=== PATIENT | male | born 1960 | race Caucasian/White ===

== ENCOUNTER 2018-07-18 09:03 | Emergency (ER) | payer MEDICAID ==
[~2018-07-18] VITALS: Ht 190.5 cm; Wt 81.8 kg
[2018-07-18] MEDS ORDERED: NAPR-56 PO (09:28)
[2018-07-18] MEDS ORDERED: PENI250T2 PO (09:28)
[2018-07-18] MEDS ORDERED: HYDROcodone/acetaminophen 5mg/325mg tablet PO ONE (09:30)
[2018-07-18 09:33] VITALS: BP 151/11
== END 2018-07-18 09:50 | disposition home or self-care (01) ==
LOC: ER 09:03
DX: K08.89 Other specified disorders of teeth and supporting structures (principal); R22.0 Localized swelling, mass and lump, head; F17.200 Nicotine dependence, unspecified, uncomplicated; Z79.899 Other long term (current) drug therapy
CPT/HCPCS: 99283

== ENCOUNTER 2018-12-30 09:24 | Emergency (ER) | payer MEDICAID ==
[~2018-12-30] VITALS: Ht 190.5 cm; Wt 80.5 kg
[2018-12-30 09:33] VITALS: BP 123/93
[2018-12-30] MEDS ORDERED: HYDR-4353 PO (10:06)
[2018-12-30] MEDS ORDERED: oxyCODONE/APAP 10/325mg tablet PO ONE (10:10)
== END 2018-12-30 10:23 | disposition home or self-care (01) ==
LOC: ER 09:24
DX: S00.532A Contusion of oral cavity, initial encounter (principal); Z79.899 Other long term (current) drug therapy; Y04.8XXA Assault by other bodily force, initial encounter; Y93.89 Activity, other specified; Y92.89 Other specified places as the place of occurrence of the external cause; Y99.8 Other external cause status
CPT/HCPCS: 99283

== ENCOUNTER 2023-04-12 14:30 | Emergency (ER) | payer MEDICAID ==
[~2023-04-12] VITALS: Ht 190.5 cm; Wt 83.2 kg
[2023-04-12 15:05] VITALS: BP 127/84; PULSE 85; TEMP 99.1; O2SAT 96
[2023-04-12] MEDS ORDERED: ketorolac tromethamine 15mg/ml inj. IM ONE (18:20)
[2023-04-12] MEDS ORDERED: ketorolac trometh. 30mg/ml inj. IM ONE (18:25)
[2023-04-12 18:27] VITALS: RESP 16
[2023-04-12] MEDS ORDERED: NAPR-56 PO (18:27)
== END 2023-04-12 18:42 | disposition home or self-care (01) ==
LOC: ER 14:31
DX: S93.492A Sprain of other ligament of left ankle, initial encounter (principal); X58.XXXA Exposure to other specified factors, initial encounter; Y93.89 Activity, other specified; Y92.89 Other specified places as the place of occurrence of the external cause; Y99.9 Unspecified external cause status
CPT/HCPCS: 73610; 96372; 99283; J1885

== ENCOUNTER 2024-06-11 09:09 | Inpatient (IN) | payer MEDICAID, OTHER ==
[~2024-06-11] VITALS: Ht 190.5 cm; Wt 78.2 kg
[2024-06-11 09:51] LABS: BASOPHILS # (AUTO) 0.1 X10'3 (0-0.2); BASOPHILS % (AUTO) 0.8 % (0-1); EOSINOPHILS % (AUTO) 0.2 % (0-6); HEMATOCRIT 42.1 % (42.0-52.0); HEMOGLOBIN 14.4 g/dl (14.0-17.9); LYMPHOCYTES % (AUTO) 10.1 % (21-51); MEAN CORPUSCULAR HEMOGLOBIN 34.5 PG (27.0-31.0); MEAN CORPUSCULAR HGB CONC 34.3 g/dL (33.0-36.5); MEAN CORPUSCULAR VOLUME 100.5 FL (78-98); MEAN PLATELET VOLUME 7.6 FL (7.4-10.4); MONOCYTES # (AUTO) 0.4 X10'3 (0-0.9); MONOCYTES % (AUTO) 4.3 % (2-12); NEUTROPHILS # (AUTO) 8.3 X10'3 (1.8-7.7); NEUTROPHILS % (AUTO) 84.6 % (42-75); PLATELET COUNT 416 X10'3 (140-440); RED BLOOD COUNT 4.18 X10'6 (4.70-6.10); RED CELL DISTRIBUTION WIDTH 13.3 % (11.5-14.5); WHITE BLOOD COUNT 9.8 X10'3 (4.5-11.0)
[2024-06-11 10:18] LABS: ALANINE AMINOTRANSFERASE 19 U/L (12-78); ALBUMIN 2.3 G/DL (3.4-5.0); ALBUMIN/GLOBULIN RATIO 0.4 (1.1-1.5); ALKALINE PHOSPHATASE 96 IU/L (46-116); ANION GAP 7 (8-16); ASPARTATE AMINO TRANSFERASE 23 U/L (10-37); BILIRUBIN,TOTAL 0.7 MG/DL (0.1-1.0); BLOOD UREA NITROGEN 6 MG/DL (7-18); BUN/CREATININE RATIO 7.4 (10.0-20.0); CALCIUM 9.2 MG/DL (8.5-10.1); CHLORIDE 97 MMOL/L (99-107); CREATININE 0.81 MG/DL (0.60-1.10); GLUCOSE 146 MG/DL (70-104); POTASSIUM 4.1 MMOL/L (3.5-5.1); SODIUM 135 MMOL/L (135-145); TOTAL CARBON DIOXIDE 30.7 MMOL/L (24-32); TOTAL PROTEIN 7.6 G/DL (6.4-8.2); eCRCL 105 ML/MIN; eGFR > 90 ML/MIN
[2024-06-11 10:21] LABS: PRO BRAIN NATRIURETIC PEPTIDE 134 PG/ML (0-125)
[2024-06-11] MEDS: CefTRIAXone 2gm/D5W 50ml BAG 50 ML IV ONE (10:40)
[2024-06-11] MEDS: normal saline 1000ml 1,000 ML IV ONE (10:40)
[2024-06-11] MEDS: benzonatate 100mg capsule PO ONE (10:43)
[2024-06-11] MEDS: azithromycin/NS 500mg/250ml 250 ML IV ONE (10:43)
[2024-06-11] MEDS: HALLS - SOOTHE MENTHOL 1.8 MG cough drop LOZENGE MM PRN (10:48)
[2024-06-11] MEDS: acetaminophen 325mg tablet PO ONE (10:48)
[2024-06-11] MEDS ORDERED: bisacodyl 10mg suppository rectal RC PRN (11:25)
[2024-06-11] MEDS ORDERED: mag hydrox/Alum hydrox/simeth 30ml oral suspension PO PRN (11:25)
[2024-06-11] MEDS ORDERED: acetaminophen 325mg tablet PO PRN (11:25)
[2024-06-11] MEDS ORDERED: potassium Cl 40MEQ/1/2NS 520ml 520 ML IV PRN (11:25)
[2024-06-11] MEDS ORDERED: potassium Cl 20 mEq SR tablet PO PRN ×2 (11:25)
[2024-06-11] MEDS ORDERED: magnesium sulf-water 2g/50mL 50 ML IV PRN (11:25)
[2024-06-11] MEDS ORDERED: ondansetron/PF 4mg/2ml inj IV PRN (11:25)
[2024-06-11] MEDS ORDERED: albuterol 2.5 MG/3 ML nebule NEB PRN ×2 (11:25→11:35)
[2024-06-11] MEDS ORDERED: magnesium sulf-water 4G/100mL 100 ML IV PRN (11:25)
[2024-06-11] MEDS ORDERED: ipratropium/albuterol 3ml nebule NEB PRN (11:25)
[2024-06-11] MEDS: normal saline 1000ml 1,000 ML IV SCH (11:35)
[2024-06-11] MEDS: ipratropium/albuterol 3ml nebule NEB SCH (15:53)
[2024-06-11 15:57] VITALS: PULSE 77; PULSE 83; RESP 18; O2SAT 99
[2024-06-11] MEDS: piperacillin/tazo 4.5gm/100ml 100 ML IV SCH (16:32)
[2024-06-11] MEDS: K and/or MAG REPLACEMENT MC SCH (19:42)
[2024-06-11] MEDS: budesonide 0.5mg/2ml UD nebule IH SCH (20:29)
[2024-06-11 20:30] VITALS: PULSE 82; RESP 16; O2SAT 98
[2024-06-11] MEDS: docusate sod 100mg capsule PO SCH (20:33)
[2024-06-11] MEDS: enoxaparin 40mg/0.4ml syringe SQ SCH (20:33)
[2024-06-11] MEDS ORDERED: LORazepam 1 MG tablet PO PRN (20:35)
[2024-06-11] MEDS ORDERED: haloperidol lactate 5mg/ml inj IM PRN (20:35)
[2024-06-11] MEDS ORDERED: haloperidol 5mg tablet PO PRN (20:35)
[2024-06-11] MEDS ORDERED: LORazepam 2 mg/ml vial IV PRN (20:35)
[2024-06-11 20:40] VITALS: PULSE 101; RESP 16
[2024-06-11 23:34] VITALS: PULSE 91; RESP 16; O2SAT 93
[2024-06-11 23:39] VITALS: PULSE 93; RESP 16
[2024-06-12] VITALS (19 sets, daily range): BP systolic 104–134; BP diastolic 68–87; PULSE 74–98; RESP 12–24; TEMP 97.8–100.1; O2SAT 94–100
[2024-06-12 05:54] LABS: BASOPHILS # (AUTO) 0.1 X10'3 (0-0.2); BASOPHILS % (AUTO) 0.6 % (0-1); EOSINOPHILS % (AUTO) 0.2 % (0-6); HEMATOCRIT 35.5 % (42.0-52.0); HEMOGLOBIN 12.1 g/dl (14.0-17.9); LYMPHOCYTES # (AUTO) 0.9 X10'3 (1.1-4.8); LYMPHOCYTES % (AUTO) 8.2 % (21-51); MEAN CORPUSCULAR HEMOGLOBIN 34.4 PG (27.0-31.0); MEAN PLATELET VOLUME 7.8 FL (7.4-10.4); MONOCYTES # (AUTO) 0.6 X10'3 (0-0.9); NEUTROPHILS # (AUTO) 8.8 X10'3 (1.8-7.7); PLATELET COUNT 357 X10'3 (140-440); RED BLOOD COUNT 3.52 X10'6 (4.70-6.10); RED CELL DISTRIBUTION WIDTH 13.4 % (11.5-14.5); WHITE BLOOD COUNT 10.4 X10'3 (4.5-11.0)
[2024-06-12 06:17] LABS: ALANINE AMINOTRANSFERASE 19 U/L (12-78); ALBUMIN 1.8 G/DL (3.4-5.0); ALBUMIN/GLOBULIN RATIO 0.4 (1.1-1.5); ALKALINE PHOSPHATASE 80 IU/L (46-116); ANION GAP 7 (8-16); ASPARTATE AMINO TRANSFERASE 17 U/L (10-37); BILIRUBIN,TOTAL 0.4 MG/DL (0.1-1.0); BLOOD UREA NITROGEN 8 MG/DL (7-18); BUN/CREATININE RATIO 10.3 (10.0-20.0); CALCIUM 8.5 MG/DL (8.5-10.1); CHLORIDE 102 MMOL/L (99-107); CREATININE 0.78 MG/DL (0.60-1.10); GLUCOSE 113 MG/DL (70-104); LIPASE 45 U/L (16-77); MAGNESIUM 2.1 MG/DL (1.5-2.4); PHOSPHORUS 3.7 MG/DL (2.3-4.5); POTASSIUM 3.8 MMOL/L (3.5-5.1); SODIUM 135 MMOL/L (135-145); TOTAL CARBON DIOXIDE 26.4 MMOL/L (24-32); TOTAL PROTEIN 6.2 G/DL (6.4-8.2); eCRCL 109 ML/MIN; eGFR > 90 ML/MIN
[2024-06-12 06:47] LABS: INR 1.1 INR; PROTHROMBIN TIME 11.1 SECONDS (9.0-12.0)
[2024-06-12] MEDS: thiamine 100mg tablet PO SCH (07:54)
[2024-06-12] MEDS: multivitamins, therapeutics tablet PO SCH (07:54)
[2024-06-12] MEDS: HYDROmorphone inj. 0.5 MG/0.5 ML DISP.SYRIN IV PRN (10:20)
[2024-06-12] MEDS: benzonatate 100mg capsule PO PRN (12:44)
[2024-06-13] VITALS (10 sets, daily range): BP systolic 111–124; BP diastolic 77–84; PULSE 60–91; RESP 16–20; TEMP 98.1–98.6; O2SAT 94–96
[2024-06-13 05:02] LABS: BASOPHILS # (AUTO) 0.1 X10'3 (0-0.2); BASOPHILS % (AUTO) 0.7 % (0-1); EOSINOPHILS # (AUTO) 0.1 X10'3 (0-0.9); EOSINOPHILS % (AUTO) 0.6 % (0-6); HEMATOCRIT 34.2 % (42.0-52.0); HEMOGLOBIN 11.9 g/dl (14.0-17.9); LYMPHOCYTES # (AUTO) 0.9 X10'3 (1.1-4.8); LYMPHOCYTES % (AUTO) 9.5 % (21-51); MEAN CORPUSCULAR HEMOGLOBIN 35.1 PG (27.0-31.0); MEAN CORPUSCULAR HGB CONC 34.9 g/dL (33.0-36.5); MEAN CORPUSCULAR VOLUME 100.4 FL (78-98); MEAN PLATELET VOLUME 7.7 FL (7.4-10.4); MONOCYTES # (AUTO) 0.6 X10'3 (0-0.9); MONOCYTES % (AUTO) 6.5 % (2-12); NEUTROPHILS # (AUTO) 7.7 X10'3 (1.8-7.7); NEUTROPHILS % (AUTO) 82.7 % (42-75); PLATELET COUNT 384 X10'3 (140-440); RED CELL DISTRIBUTION WIDTH 13.4 % (11.5-14.5); WHITE BLOOD COUNT 9.3 X10'3 (4.5-11.0)
[2024-06-13 05:14] LABS: INR 1.1 INR; PROTHROMBIN TIME 11.3 SECONDS (9.0-12.0)
[2024-06-13 05:23] LABS: ALANINE AMINOTRANSFERASE 26 U/L (12-78); ALBUMIN 1.9 G/DL (3.4-5.0); ALBUMIN/GLOBULIN RATIO 0.4 (1.1-1.5); ALKALINE PHOSPHATASE 72 IU/L (46-116); ANION GAP 4 (8-16); ASPARTATE AMINO TRANSFERASE 33 U/L (10-37); BILIRUBIN,TOTAL 0.4 MG/DL (0.1-1.0); BLOOD UREA NITROGEN 6 MG/DL (7-18); BUN/CREATININE RATIO 7.8 (10.0-20.0); CALCIUM 8.5 MG/DL (8.5-10.1); CHLORIDE 100 MMOL/L (99-107); CREATININE 0.77 MG/DL (0.60-1.10); GLUCOSE 124 MG/DL (70-104); LIPASE 39 U/L (16-77); MAGNESIUM 1.8 MG/DL (1.5-2.4); PHOSPHORUS 4.2 MG/DL (2.3-4.5); POTASSIUM 3.7 MMOL/L (3.5-5.1); SODIUM 133 MMOL/L (135-145); TOTAL CARBON DIOXIDE 29.2 MMOL/L (24-32); TOTAL PROTEIN 6.3 G/DL (6.4-8.2); eCRCL 110 ML/MIN; eGFR > 90 ML/MIN
[2024-06-13] MEDS: HYDROmorphone/PF 0.2 MG/ML SYRINGE IV PRN (08:35)
[2024-06-13] MEDS: ibuprofen 200mg tablet PO PRN (10:19)
[2024-06-13] MEDS ORDERED: ALBU8HFA INH (12:58)
[2024-06-13] MEDS ORDERED: HYDR-3973 PO (12:58)
[2024-06-13] MEDS ORDERED: LEVO750T68 PO (12:58)
[2024-06-13] MEDS ORDERED: BUDE180A INH (12:58)
[2024-06-13] MEDS ORDERED: BENZ200C53 PO (12:58)
[2024-06-13] MEDS: FLU VACC TS2024-25(6MOS UP)/PF 45 MCG/0.5 ML SYRINGE IMVAC ONE (13:08)
[2024-06-16] MEDS ORDERED: folic acid 1mg tablet PO SCH (08:00)
== END 2024-06-13 14:45 | disposition home or self-care (01) | DRG 190 ==
LOC: ER 09:10 → ED HOLD 11:32 → EDBEDREQ 21:12 → SUR 3N 06-12 00:55
PROVIDERS: ADMIT Family Medicine; ATTEND Family Medicine
DX: J44.0 Chronic obstructive pulmonary disease with (acute) lower respiratory infection (principal); J18.9 Pneumonia, unspecified organism; F17.210 Nicotine dependence, cigarettes, uncomplicated; R59.0 Localized enlarged lymph nodes; F10.90 Alcohol use, unspecified, uncomplicated; Z20.822 Contact with and (suspected) exposure to COVID-19; F12.90 Cannabis use, unspecified, uncomplicated; J43.9 Emphysema, unspecified; R63.4 Abnormal weight loss; Y90.9 Presence of alcohol in blood, level not specified; Z68.21 Body mass index [BMI] 21.0-21.9, adult; Z80.8 Family history of malignant neoplasm of other organs or systems; Z82.49 Family history of ischemic heart disease and other diseases of the circulatory system
CPT/HCPCS: 36415; 71045; 71250; 80053; 83605; 83690; 83735; 83880; 84100; 84145; 84484; 85025; 85610; 87040; 87081; 87502; 87503; 87811; 90686; 93005; 94640; 94760; 99285; G0378; J0456; J0696; J1171; J1650; J2543; J7030

== ENCOUNTER 2024-07-16 14:09 | Emergency (ER) | payer OTHER ==
[~2024-07-16] VITALS: Ht 188 cm; Wt 82.7 kg
[~2024-07-16 14:09] MED LIST: ALBU8HFA INH; BENZ200C53 PO; BUDE180A5 INH; HYDR-3973 PO; LEVO750T68 PO
[2024-07-16 14:50] LABS: BASOPHILS % (AUTO) 0.9 % (0-1); EOSINOPHILS % (AUTO) 0.7 % (0-6); HEMOGLOBIN 14.1 g/dl (14.0-17.9); LYMPHOCYTES # (AUTO) 0.9 X10'3 (1.1-4.8); LYMPHOCYTES % (AUTO) 19.9 % (21-51); MEAN CORPUSCULAR HEMOGLOBIN 34.2 PG (27.0-31.0); MEAN CORPUSCULAR HGB CONC 34.3 g/dL (33.0-36.5); MEAN CORPUSCULAR VOLUME 99.6 FL (78-98); MEAN PLATELET VOLUME 7.1 FL (7.4-10.4); MONOCYTES # (AUTO) 0.5 X10'3 (0-0.9); MONOCYTES % (AUTO) 11.5 % (2-12); NEUTROPHILS # (AUTO) 2.9 X10'3 (1.8-7.7); PLATELET COUNT 166 X10'3 (140-440); RED BLOOD COUNT 4.11 X10'6 (4.70-6.10); RED CELL DISTRIBUTION WIDTH 15.1 % (11.5-14.5); WHITE BLOOD COUNT 4.3 X10'3 (4.5-11.0)
[2024-07-16 15:12] LABS: ALBUMIN 3.5 G/DL (3.4-5.0); ANION GAP 11 (8-16); BLOOD UREA NITROGEN 6 MG/DL (7-18); CALCIUM 8.1 MG/DL (8.5-10.1); CHLORIDE 102 MMOL/L (99-107); CREATININE 0.75 MG/DL (0.60-1.10); GLUCOSE 76 MG/DL (70-104); POTASSIUM 4.2 MMOL/L (3.5-5.1); PRO BRAIN NATRIURETIC PEPTIDE 96 PG/ML (0-125); SODIUM 138 MMOL/L (135-145); TOTAL CARBON DIOXIDE 24.9 MMOL/L (24-32); eCRCL 119 ML/MIN; eGFR > 90 ML/MIN
[2024-07-16 16:16] VITALS: BP 114/88; PULSE 77; RESP 16; TEMP 98.5; O2SAT 95
[2024-07-17] MEDS ORDERED: ALBU8HFA INH (07:18)
[2024-07-17] MEDS ORDERED: AZIT-31 PO (07:18)
== END 2024-07-16 18:47 | disposition left against medical advice (07) ==
LOC: ER 14:10
DX: R06.02 Shortness of breath (principal); R05.9 Cough, unspecified; Z53.21 Procedure and treatment not carried out due to patient leaving prior to being seen by health care provider
CPT/HCPCS: 36415; 71046; 80048; 83605; 83880; 85025; 87040

== ENCOUNTER 2024-07-17 05:47 | Emergency (ER) | payer OTHER ==
[~2024-07-17] VITALS: Ht 190.5 cm; Wt 84.1 kg
[2024-07-17] MEDS ORDERED: ALBU8HFA INH (07:18)
[2024-07-17] MEDS ORDERED: AZIT-31 PO (07:18)
[2024-07-17] MEDS: azithromycin 250mg tablet PO ONE (07:25)
[2024-07-17] MEDS: dexamethasone 4mg tablet PO ONE (07:25)
[2024-07-17] MEDS: ipratropium/albuterol 3ml nebule NEB ONE (07:37)
[2024-07-17 07:38] VITALS: PULSE 71; PULSE 75; RESP 18; O2SAT 95; O2SAT 96
[2024-07-17 07:56] VITALS: BP 135/95; PULSE 83; RESP 20; TEMP 97.7; O2SAT 100
== END 2024-07-17 07:58 | disposition home or self-care (01) ==
LOC: ER 05:47
DX: J18.9 Pneumonia, unspecified organism (principal); J44.9 Chronic obstructive pulmonary disease, unspecified; Z79.2 Long term (current) use of antibiotics; Z79.899 Other long term (current) drug therapy; Z87.891 Personal history of nicotine dependence
CPT/HCPCS: 94640; 94760; 99283

== ENCOUNTER 2024-12-30 12:29 | Emergency (ER) | payer MEDICAID, OTHER ==
[~2024-12-30] VITALS: Ht 188 cm; Wt 108.0 kg
[2024-12-30 12:30] VITALS: TEMP 98.5
--- NOTE | 2024-12-30 12:36 | ELECTROCARDIOGRAPH REPORT ---
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 Tez Turcios Measurements Intervals [place] Rate: 89 P: 67 IN: 170 QRS: 71 QRSD: 91 T: 73 QT: 358 QTc: 436 Interpretive Statements Sinus rhythm Consider left atrial enlargement ST elevation, consider inferior injury Baseline wander in lead(s) V2 Electronically Signed On 01-01-2025 21:44:[address] Tez Turcios Please click the below link to view image of tracing.
[2024-12-30 12:42] LABS: BASOPHILS # (AUTO) 0.1 X10'3 (0-0.2); BASOPHILS % (AUTO) 0.8 % (0-1); EOSINOPHILS # (AUTO) 0.1 X10'3 (0-0.9); EOSINOPHILS % (AUTO) 0.8 % (0-6); HEMATOCRIT 44.6 % (42.0-52.0); HEMOGLOBIN 15.5 g/dl (14.0-17.9); LYMPHOCYTES # (AUTO) 1.3 X10'3 (1.1-4.8); LYMPHOCYTES % (AUTO) 19.1 % (21-51); MEAN CORPUSCULAR HEMOGLOBIN 35.2 PG (27.0-31.0); MEAN CORPUSCULAR HGB CONC 34.7 g/dL (33.0-36.5); MEAN CORPUSCULAR VOLUME 101.4 FL (78-98); MEAN PLATELET VOLUME 7.4 FL (7.4-10.4); MONOCYTES # (AUTO) 0.7 X10'3 (0-0.9); MONOCYTES % (AUTO) 10.2 % (2-12); NEUTROPHILS # (AUTO) 4.5 X10'3 (1.8-7.7); NEUTROPHILS % (AUTO) 69.1 % (42-75); PLATELET COUNT 210 X10'3 (140-440); RED CELL DISTRIBUTION WIDTH 13.4 % (11.5-14.5); WHITE BLOOD COUNT 6.6 X10'3 (4.5-11.0)
[2024-12-30] MEDS: ipratropium/albuterol 3ml nebule NEB ONE (12:42)
[2024-12-30 12:45] VITALS: PULSE 103; RESP 20; O2SAT 95
[2024-12-30 12:52] VITALS: PULSE 97; RESP 18; O2SAT 97
--- NOTE | 2024-12-30 12:54 | RADIOLOGY REPORT ---
CHEST RADIOGRAPH Indication: sob Technique: Single frontal view of the chest was obtained COMPARISON: DI CHEST,SINGLE VIEW on DOS: 06/11/24 FINDINGS: Lines and Tubes: None Lungs: Multifocal airspace disease Pleura: No effusion. No pneumothorax. Cardiomediastinal contours: Unremarkable Bones: Unremarkable IMPRESSION: Multifocal airspace disease
[2024-12-30 13:05] LABS: ALANINE AMINOTRANSFERASE 49 U/L (12-78); ALBUMIN 3.4 G/DL (3.4-5.0); ALBUMIN/GLOBULIN RATIO 0.8 (1.1-1.5); ALKALINE PHOSPHATASE 115 IU/L (46-116); ANION GAP 11 (8-16); ASPARTATE AMINO TRANSFERASE 59 U/L (10-37); BILIRUBIN,TOTAL 0.5 MG/DL (0.1-1.0); BLOOD UREA NITROGEN 7 MG/DL (7-18); BUN/CREATININE RATIO 11.7 (10.0-20.0); CALCIUM 8.8 MG/DL (8.5-10.1); CHLORIDE 103 MMOL/L (99-107); GLUCOSE 102 MG/DL (70-104); POTASSIUM 4.3 MMOL/L (3.5-5.1); SODIUM 139 MMOL/L (135-145); TOTAL CARBON DIOXIDE 24.8 MMOL/L (24-32); TOTAL PROTEIN 7.5 G/DL (6.4-8.2); eCRCL 147 ML/MIN; eGFR > 90 ML/MIN
[2024-12-30 13:06] LABS: MAGNESIUM 2.2 MG/DL (1.5-2.4); PRO BRAIN NATRIURETIC PEPTIDE 35 PG/ML (0-125)
[2024-12-30] MEDS: CefTRIAXone 2gm/NS 100ml IVPB 50 ML IV ONE (13:45)
[2024-12-30] MEDS ORDERED: AMOX-580 PO (13:51)
--- NOTE | 2024-12-30 13:52 | Physician Documentation ---
History of Present Illness ~ Chief Complaint: Shortness of Breath Stated Complaint: SOB Time Seen by MD: 12:31 Primary Medical Doctor: NONE Mode of Arrival: EMS HPI This is a 64-year-old gentleman who presents for evaluation of shortness a breath starting this morning. He feels that this was related to the fact that he was exposed to bug spray that was being spread around him. No palliating factors, no aggravating factors, not accompanied by chest pain. He does report that DuoNeb provided by EMS made him feel better. Does have prior history of pneumonia. Does have known left upper lung nodule that is being investigated. Awaiting biopsy. Denies any nausea, vomiting, diarrhea, abdominal pain. Continues to smoke. 50+ pack year history. Medication Reconciliation Allergies: Coded Allergies: No Known Allergies (Unverified , 07/17/24) Scheduled Amox Tr/Potassium Clavulanate 875/125 MG (Augmentin 875/125 MG), 1 TAB PO Q12H Budesonide (Pulmicort Flexhaler), 2 PUFFS INH Q12H Levofloxacin (Levofloxacin), 750 MG PO DAILY Scheduled PRN Benzonatate (Benzonatate), 1 CAP PO TID PRN for cough Hydrocodone Bit/Acetaminophen (Hydrocodone-Apap 10-325 Tablet), 1 TABLET PO Q8H PRN for severe pain (7-10) albuterol inhaler (Pro-Air Inhaler), 2 PUFFS INH Q4H PRN for shortness of breath Past Medical History Past Medical History: No Pertinent History, COPD Past Surgical History: noncontributory Patient History: FH: congestive heart failure brother FH: malignant neoplasm of bone sister Alcohol Use: Occasionally Drug Use: none Lives with: Spouse Lives In: Home Review of Systems ROS 10 point review of systems was performed and unless noted above in HPI is negative for acute process/complaint. Physical Exam Vital Signs: Temperature: 98.5, Source: Oral, Heart Rate: 90, Respiratory Rate: 16, BP: 167/103, Pulse Oximetry: 94, Weight: 108.000 Oxygen Flow Rate: 2.0 Physical Exam GENERAL: Awake, alert, oriented, GCS 15, no apparent distress, non-toxic appearing, answers questions, follows commands appropriately. HEENT: Atraumatic, normocephalic, pupils equal, extraocular muscles intact, sclerae anicteric, mucus membranes moist, oropharynx is clear, no stridor. NECK: supple, full active range of motion, trachea midline, no thyromegaly, no lymphadenopathy, no JVD. CARDIOVASCULAR: regular rate/rhythm, no murmurs/gallops/rubs, Pulses are 2+ in all extremities and symmetric. Capillary refill less than 2 seconds. PULMONARY: Tachypneic, decreased air movement ,no respiratory distress, speaking in full sentences, coarse breath sounds bilaterally, bilateral expiratory wheezing, right lung ronchi, no rales, no accessory muscle use. GASTROINTESTINAL: Soft, non-tender, non-distended, normal active bowel sounds, no organomegaly, no pulsatile masses, no CVA tenderness. NEUROLOGIC: Lucid with normal mental status. Normal facial symmetry. Moves all extremities symmetrically and with purpose. No truncal ataxia. Speech is fluid without evidence of dysarthria or aphasia, no focal deficits appreciated. MUSCULOSKELETAL: There is full range of motion of all extremities. There is no joint pain or joint swelling or joint erythema. There is no muscle pain or tenderness or swelling. EXTREMITIES: warm, well-perfused, no cyanosis, no clubbing, no edema, no acute deformities. Skin: warm, dry, no rashes or lesions, no jaundice, no petechiae orpurpura. No ecchymosis. PSYCHIATRIC: Normal affect, normal insight, normal concentration. Focused exam: [] Progress Results/Orders Results/Orders Orders - MILTON SALDAÑA DO Chest,Single View (12/30/24 12:31) Hs Troponin I W Calculations (12/30/24 14:31) Completed Orders - MILTON SALDAÑA DO Electrocardiogram (12/30/24 12:31) Cbc/Diff (12/30/24 12:31) Chest,Single View (12/30/24 12:31) PBNP (12/30/24 12:31) MG (12/30/24 12:31) CMP (12/30/24 12:31) Hs Troponin I W Calculations (12/30/24 12:31) Ipratropium/Albuterol Nebule (Ipratrop/A (12/30/24 16:00) Azithromycin/Ns 500mg/250ml (Zithromax/N (12/30/24 13:45) Normal Saline 1000ml (Sodium Chloride 10 (12/30/24 13:45) Ceftriaxone 2gm/Ns 100ml Ivpb (Rocephin (12/30/24 13:45) Hydrocodone/Apap 5/325mg Tab (Bassett 5/32 (12/30/24 15:20) Medications Received in ER Medications (Trade) Dose Ordered Sig/Mariel Route PRN Reason Start Time Stop Time Status Last Admin Dose Admin (ipratrop/ albuterol 0.5-3(2.5) MG/3ml nebule) 3 ml Q4H ONCE NEB 12/30/24 16:00 12/30/24 15:29 DC 12/30/24 12:42 3 ML Azithromycin 250 ml @ 250 mls/hr ONCE ONCE IV 12/30/24 13:45 12/30/24 14:44 DC 12/30/24 13:53 250 MLS/HR (sodium chloride 1000ml IV soln) 1,000 ml ONCE ONCE IVB 12/30/24 13:45 12/30/24 13:47 DC 12/30/24 13:53 1,000 ML Ceftriaxone Sodium 50 ml @ 100 mls/hr ONCE ONCE IV 12/30/24 13:45 12/30/24 14:14 DC 12/30/24 13:45 100 MLS/HR (Bassett 5/325mg tablet) 1 tab ONCE ONCE PO 12/30/24 15:20 12/30/24 15:21 DC 12/30/24 15:22 1 TAB Vital Signs 12/30/24 12/30/24 12/30/24 12/30/24 12:30 12:35 12:45 12:52 Temp 98.5 Pulse 95 103 97 Resp 19 19 20 18 B/P (MAP) 134/85 Pulse Ox 96 95 97 O2 Delivery Room Air* Room Air* O2 Flow Rate 0 0 0 FiO2 12/30/24 12/30/24 12/30/24 12/30/24 12:56 12:57 14:39 15:22 Pulse 90 88 Resp 16 16 14 B/P (MAP) 167/103 (124) 117/72 (87) Pulse Ox 94 94 97 O2 Delivery Nasal Cannula* O2 Flow Rate 2.0 2 FiO2 N/A 12/30/24 12/30/24 15:24 15:27 Pulse 85 Resp 14 18 B/P (MAP) 145/85 Pulse Ox 97 Laboratory Tests Test 12/30/24 12:34 White Blood Count 6.6 Red Blood Count 4.40 L Hemoglobin 15.5 Hematocrit 44.6 Mean Corpuscular Volume 101.4 H Mean Corpuscular Hemoglobin 35.2 H Mean Corpuscular Hemoglobin Concent 34.7 Red Cell Distribution Width 13.4 Platelet Count 210 Mean Platelet Volume 7.4 Neutrophils (%) (Auto) 69.1 Lymphocytes (%) (Auto) 19.1 L Monocytes (%) (Auto) 10.2 Eosinophils (%) (Auto) 0.8 Basophils (%) (Auto) 0.8 Neutrophils # (Auto) 4.5 Lymphocytes # (Auto) 1.3 Monocytes # (Auto) 0.7 Eosinophils # (Auto) 0.1 Basophils # (Auto) 0.1 CBC Comment Sodium Level 139 Potassium Level 4.3 Chloride Level 103 Carbon Dioxide Level 24.8 Anion Gap 11 Blood Urea Nitrogen 7 Creatinine 0.60 Estimated GFR/1.73 m2 > 90 BUN/Creatinine Ratio 11.7 Glucose Level 102 Calcium Level 8.8 Magnesium Level 2.2 Total Bilirubin 0.5 Aspartate Amino Transf (AST/SGOT) 59 H Alanine Aminotransferase (ALT/SGPT) 49 Alkaline Phosphatase 115 Troponin I High Sensitivity 8 Pro-B-Type Natriuretic Peptide 35 Total Protein 7.5 Albumin 3.4 Globulin 4.1 Albumin/Globulin Ratio 0.8 L Chemistry Comments Medical Decision Making Findings Facility Status: ED [facility], [facility] process The plan was discussed with the patient, who demonstrates clear understanding of the plan and is in agreement with the plan unless otherwise noted in the chart. All questions have been answered, all concerns were addressed unless otherwise documented. I was available throughout their ED stay for frequent reassessment and questions. Differential Diagnoses (considered and possible or likely): [COVID, influenza, RSV, upper respiratory infection with the top of the viruses, community-acquired pneumonia, neoplasm, less likely ACS CHF] ??Differential Diagnoses (considered and unlikely, not requiring evaluation currently): [Low risk for PE] MDM Data Please see HPI for the following: Independent Historians and external Records Review. Historian: [Patient] Independent Historians: ?[EMS, record review] Medication Management: [Reviewed medication list] Social History and determinants: [Reviewed] Please see the body of the note for the following: Any independent interpretations of ECG, imaging studies. All vitals signs/haemodynamics, ordered tests were independently reviewed and interpreted by myself. Nursing triage complaint and vitals reviewed, additional nursing notes were reviewed as available and I agree unless otherwise noted or documented in contradiction in the chart Vital Signs: Independently reviewed Labs: Independently interpreted Imaging: Independently interpreted Old Medical Records: Independently reviewed, see HPI for relevant summary and information Pulse Oximetry: [94%] interpreted as [normal on room air] by me [Photo Mask Pattern Generator: [Regular Rate, Regular rhythm, no ectopy, NSR] reviewed and interpreted by me] Additionally notably showing: [Hemodynamically he is stable. No evidence of hypoxia. Laboratory workup shows no leukocytosis, normal troponin, normal BNP. Chest x-ray shows multifocal pneumonia.] Tests considered but not ordered include: [Advanced imaging of for PE has been considerably does not appear to be necessary given other diagnosis being more likely, wells of 0] Social Determinants of Health Impact: Patient was evaluated in [facility], [facility] [place] access to healthcare due to below par ratio of patient to medical providers. [] Comorbid Conditions Impacting Present Evaluation and Care/Treatment: [Smoking] Management Discussions with other Healthcare Providers: [None] Treatment and Disposition Medication Management (Given or considered): [Breathing treatment]. Antibiotics and fluids. See EMR for details Consideration for Hospitalization/Escalation/Deescalation of Care: Admission for observation has been considered, [however the patient is able to tolerate p.o., their symptoms are controlled, they are able to rely on oral medications, and their chief complaint/diagnosis can be managed on outpatient basis.] ?ED Course:?[No clinical deterioration, no hypoxia.] ?Shared decision making:?[Patient is hemodynamically stable for discharge home with follow with their primary care provider. [ ] Specific and cautious return precautions provided and discussed with full understanding. Any incidental findings were also discussed and follow up recommendations given. [] All questions answered. Patient/family were able to verbalize back return precautions. Patient/family agree to plan. Copies of imaging and laboratory danny dies were provided.] Code status:?FULL Please see the full Electronic Medical Record for full details of nursing documentation, medications list, other records of complete past medical history and conditions, vital signs, laboratory studies, and any radiologic study interpretations by radiologists. Portions of this note were completed using Madrone dictation software and as a result there may exist minor errors in spelling. I have reviewed elements of past family and social history and agree as included in note. Departure Disposition: HOME / SELF CARE / HOMELESS Impression: Primary Impression: Multifocal pneumonia Additional Impression: Difficulty breathing Discharge Instructions: Community-Acquired Pneumonia, Adult Referrals: NO PRIMARY CARE PROVIDER (PCP) Prescriptions Amox Tr/Potassium Clavulanate 875/125 MG (Augmentin 875/125 MG) 875 Mg-125 Mg Tablet 1 TAB PO Q12H for 10 Days, #20 TAB Prov: MILTON SALDAÑA DO 12/30/24 Education Educated: Patient Educated regarding: diagnosis, treatment, prognosis, need for follow up Signature Scribe Signature: No scribe Attestation: This note accurately reflects clinical decisions, work performed by myself, DO PIPER Erickson NICHOLAS M DO December 30, 2024 13:52
[2024-12-30] MEDS: normal saline 1000ML IV soln IVB ONE (13:53)
[2024-12-30] MEDS: azithromycin/NS 500mg/250ml 250 ML IV ONE (13:53)
[2024-12-30] MEDS: HYDROcodone/acetaminophen 5mg/325mg tablet PO ONE (15:22)
[2024-12-30 15:27] VITALS: BP 145/85; PULSE 85; RESP 18; O2SAT 97
== END 2024-12-30 15:29 | disposition home or self-care (01) ==
LOC: ER 12:29
DX: J18.8 Other pneumonia, unspecified organism (principal); F17.200 Nicotine dependence, unspecified, uncomplicated; Z79.899 Other long term (current) drug therapy
CPT/HCPCS: 36415; 71045; 80053; 83735; 83880; 84484; 85025; 93005; 94640; 96365; 96366; 96368; 99285; J0456; J0696; J7030; 94760

== ENCOUNTER 2025-03-03 10:11 | Emergency (ER) | payer MEDICAID, OTHER ==
[~2025-03-03] VITALS: Ht 190.5 cm; Wt 77.9 kg
--- NOTE | 2025-03-03 10:18 | Physician Documentation ---
History of Present Illness ~ Stated Complaint: BACK/LUNG PAIN Time Seen by MD: 11:01 Primary Medical Doctor: NONE Source: patient, family HPI 64 yom h/o tobacco use disorder presenting with back pain and months of shortness of breath. +cough. He was seen here last fall and diagnosed with pneumonia and spiculated left upper lobe mass. He did not have his insurance set up to follow up until now. no leg swelling or pain Day of Onset: Mar 03, 2025 Medication Reconciliation Allergies: Coded Allergies: No Known Allergies (Unverified , 03/03/25) Scheduled Budesonide (Pulmicort Flexhaler), 2 PUFFS INH Q12H Levofloxacin (Levofloxacin), 750 MG PO DAILY Scheduled PRN Benzonatate (Benzonatate), 1 CAP PO TID PRN for cough Hydrocodone Bit/Acetaminophen (Hydrocodone-Apap 10-325 Tablet), 1 TABLET PO Q8H PRN for severe pain (7-10) albuterol inhaler (Pro-Air Inhaler), 2 PUFFS INH Q4H PRN for shortness of breath Past Medical History Alcohol Use: Occasionally Drug Use: none Review of Systems Constitutional: Denies: fever, chills Respiratory: Reports: cough, shortness of breath; Denies: wheezing Gastrointestinal: Denies: abdominal pain Genitourinary: Denies: flank pain, hematuria Neurological: Denies: headache Musculoskeletal: Denies: swelling Physical Exam Physical Exam General: Alert, no apparent distress. HEENT: PERRL, EOMI, no injection, moist mucous membranes. . Respiratory: Diminished bilateral Chest: No accessory muscle use. Cardiovascular: Regular rate and rhythm, no murmurs. General Appearance chronically ill no acute distress lungs dimished lung sounds and wheezing right side cardiac no murmur abdomen soft non tender. lower ext no edema Progress Progress Note d/w pulmonology Dr. Snow who agrees patient should be transferred for pulm consult d.w Dr. Mcarthur hospitalist who accepts for transfer Results/Orders Results/Orders Orders - MILTON POLANCO MD Monitor (03/03/25 10:17) Ct Chest (03/03/25 13:18) Completed Orders - MILTON POLANCO MD Electrocardiogram (03/03/25 10:17) Hs Troponin I W Calculations (03/03/25 10:17) Hs Troponin I W Calculations (03/03/25 12:17) Hs Troponin I W Calculations (03/03/25 13:17) CMP (03/03/25 12:17) Ct Chest (03/03/25 13:18) Ipratropium/Albuterol Nebule (Ipratrop/A (03/03/25 12:35) Morphine 4mg/Ml Inj. (Morphine Inj.) (03/03/25 12:45) Iohexol 350mg/Ml 100ml (Omnipaque 350mg/ (03/03/25 12:59) Morphine 4mg/Ml Inj. (Morphine Inj.) (03/03/25 15:25) Morphine 4mg/Ml Inj. (Morphine Inj.) (03/03/25 17:00) Medications Received in ER Medications (Trade) Dose Ordered Sig/Mariel Route PRN Reason Start Time Stop Time Status Last Admin Dose Admin (ipratrop/ albuterol 0.5-3(2.5) MG/3ml nebule) 3 ml ONCE ONCE NEB 03/03/25 12:35 03/03/25 12:36 DC 03/03/25 12:46 3 ML (morphine inj.) 4 mg ONCE ONCE IV 03/03/25 12:45 03/03/25 12:46 DC 03/03/25 12:50 4 MG (morphine inj.) 4 mg ONCE ONCE IV 03/03/25 15:25 03/03/25 15:26 DC 03/03/25 15:47 4 MG (morphine inj.) 4 mg ONCE ONCE IV 03/03/25 17:00 03/03/25 17:01 DC 03/03/25 17:17 4 MG Vital Signs 03/03/25 03/03/25 03/03/25 03/03/25 10:14 10:54 10:54 10:58 Temp 98.5 Pulse 114 107 Resp 22 20 20 B/P (MAP) 122/93 133/102 (112) Pulse Ox 92 95 O2 Delivery Room Air* O2 Flow Rate 0 0 0 FiO2 21 03/03/25 03/03/25 03/03/25 03/03/25 12:46 12:55 13:20 15:13 Pulse 102 101 98 92 Resp 20 16 24 17 B/P (MAP) 131/86 (101) 145/100 (115) Pulse Ox 98 100 95 94 O2 Delivery Room Air* Room Air* O2 Flow Rate 0 0 FiO2 21 21 03/03/25 16:35 Pulse 101 Resp 20 B/P (MAP) 142/67 (92) Pulse Ox 95 Laboratory Tests Test 03/03/25 10:25 03/03/25 12:49 03/03/25 13:27 White Blood Count 7.6 Red Blood Count 5.21 Hemoglobin 17.4 Hematocrit 50.3 Mean Corpuscular Volume 96.7 Mean Corpuscular Hemoglobin 33.3 H Mean Corpuscular Hemoglobin Concent 34.5 Red Cell Distribution Width 13.1 Platelet Count 368 Mean Platelet Volume 7.3 L Neutrophils (%) (Auto) 78.4 H Lymphocytes (%) (Auto) 12.9 L Monocytes (%) (Auto) 7.3 Eosinophils (%) (Auto) 0.5 Basophils (%) (Auto) 0.9 Neutrophils # (Auto) 6.0 Lymphocytes # (Auto) 1.0 L Monocytes # (Auto) 0.6 Eosinophils # (Auto) 0.0 Basophils # (Auto) 0.1 Sodium Level 137 137 Potassium Level 4.1 4.0 Chloride Level 100 100 Carbon Dioxide Level 27.8 27.1 Anion Gap 9 10 Blood Urea Nitrogen 6 L 6 L Creatinine 0.67 0.71 Estimated GFR/1.73 m2 > 90 > 90 BUN/Creatinine Ratio 9.0 L 8.5 L Glucose Level 120 H 101 Lactic Acid Level 2.1 H 2.3 H Calcium Level 9.6 9.4 Troponin I High Sensitivity 7 9 8 Pro-B-Type Natriuretic Peptide 280 H Albumin 2.7 L 2.5 L Total Bilirubin 0.6 Aspartate Amino Transf (AST/SGOT) 17 Alanine Aminotransferase (ALT/SGPT) 12 Alkaline Phosphatase 102 Troponin I High Sens Percent Delta 28 11 Troponin I Hi Sens Absolute Change 2 -1 Total Protein 7.2 Globulin 4.7 H Albumin/Globulin Ratio 0.5 L Chemistry Comments Microbiology Date/Time Source Procedure Growth Status 03/03/25 11:02 Blood Arm Right Blood Culture - Preliminary NEGATIVE (LESS THAN 24 HOURS) Resulted EKG/XRAY/CT/US/VASC/MRI CT : Impression Independent interpretation of CT shows near complete atelectasis of right lung, small effusion no ptx Medical Decision Making Additional info obtained from: old records Findings d/c summary Differential Dx:Considerations: Include: Bronchiolitis, Congenital anomaly, Croup, Laryngomalacia, Pneumonia, Pneumothorax, Respiratory failure, Respiratory insufficiency Departure Disposition: 02 SHORT TERM HOSPITAL Impression: Primary Impression: Lung mass Referrals: NO PRIMARY CARE PROVIDER (PCP) Signature Scribe Signature: na Attestation: OVI Cope NP Mar 03, 2025 10:18 MILTON POLANCO MD Mar 03, 2025 12:21
--- NOTE | 2025-03-03 10:27 | ELECTROCARDIOGRAPH REPORT ---
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 Tez Turcios Measurements Intervals [place] Rate: 113 P: 54 DE: 170 QRS: -1 QRSD: 83 T: 52 QT: 308 QTc: 423 Interpretive Statements Sinus tachycardia LAE, consider biatrial enlargement Electronically Signed On 03-05-2025 19:15:[address] Tez Turcios Please click the below link to view image of tracing.
[2025-03-03 10:49] LABS: MEAN PLATELET VOLUME 7.3 FL (7.4-10.4); RED CELL DISTRIBUTION WIDTH 13.1 % (11.5-14.5)
[2025-03-03 11:07] LABS: CREATININE 0.67 MG/DL (0.60-1.10); PRO BRAIN NATRIURETIC PEPTIDE 280 PG/ML (0-125); TOTAL CARBON DIOXIDE 27.8 MMOL/L (24-32); eCRCL 124 ML/MIN; eGFR > 90 ML/MIN
--- NOTE | 2025-03-03 11:10 | RADIOLOGY REPORT ---
DI CHEST,TWO VIEWS CLINICAL HISTORY: SOB COMPARISON: DI CHEST,TWO VIEWS on DOS: 07/16/24 TECHNIQUE: Frontal and lateral view of the chest was obtained FINDINGS: Lines and Tubes: None Lungs: Near-complete whiteout of the right lung with ipsilateral deviation of the mediastinum and tra paige. Endotracheal lesion cannot be excluded. Pleura: No effusion. No pneumothorax. Cardiomediastinal contours: Unremarkable Bones: No acute osseous abnormality. IMPRESSION: Near-complete whiteout of the right lung with ipsilateral deviation of the mediastinum and trachea. E ndotracheal lesion cannot be excluded. CT suggested.
[2025-03-03 12:46] VITALS: PULSE 102; RESP 20; O2SAT 98
[2025-03-03] MEDS: ipratropium/albuterol 3ml nebule NEB ONE (12:46)
[2025-03-03] MEDS: morphine 4 MG/ML inj SYRINge IV ONE ×4 (12:50→18:50)
[2025-03-03 12:55] VITALS: PULSE 101; RESP 16; O2SAT 100
[2025-03-03 13:14] LABS: CREATININE 0.71 MG/DL (0.60-1.10); TOTAL CARBON DIOXIDE 27.1 MMOL/L (24-32); eCRCL 117 ML/MIN; eGFR > 90 ML/MIN
--- NOTE | 2025-03-03 13:53 | RADIOLOGY REPORT ---
Procedure: CT CT CHEST W/ IV CONTRAST 03/03/2025 01:07 PM History: lung mass Comparison: CT CT CHEST on DOS: 06/11/24 Technique: After the uneventful administration of contrast intravenously, CT imaging was performed th rough the chest. Coronal and sagittal reformations were performed by the technologist. 3D image postprocessing was performed on a dedicated workstation and images were used for interpretat ion and reporting. Radiation Dose : CT Dose: CTDI volume is 14.9 mGy. Dose-length product is 640.6 mGy*cm Findings: Lower neck: Normal thyroid. Lungs: Multifocal right lung airspace consolidation and atelectasis. Multiple left lung nodules are present. For example, Spiculated nodule in the left upper lobe measures 1.1 cm. 0.9 cm nodule in the left lung base. Heart/Vascular Structures: Normal heart size. No pericardial effusion. Lymph Nodes: Right subcarinal possible necrotic lymph node measures 2.3 cm. Right precarinal lymph node measures 2.7 cm. Pleura: Small right pleural effusion. Musculoskeletal: No acute osseous abnormality. Soft tissues: Normal. Upper abdomen: 2.2 cm indeterminate nodule in the right adrenal gland. Indeterminate hypoattenuating lesion in the left upper pole measures 1.5 cm. IMPRESSION: Multiple left lung pulmonary nodules suspicious for metastatic disease. Multifocal right lung airspace consolidation and atelectasis. Underlying endobronchial mass and posto bstructive atelectasis is within differential considerations. Small right pleural effusion. Mediastinal adenopathy is present. Indeterminate hypoattenuating lesion of the left upper pole of the kidney measures 1.5 cm. 2.2 cm indeterminate nodule in the right adrenal gland; possible metastasis.
[2025-03-03 21:50] VITALS: BP 136/80; PULSE 80; RESP 18; TEMP 98.4; O2SAT 99
== END 2025-03-03 21:53 | disposition short-term general hospital (02) ==
LOC: ER 10:12
DX: R91.8 Other nonspecific abnormal finding of lung field (principal); Z79.899 Other long term (current) drug therapy; Z72.89 Other problems related to lifestyle
CPT/HCPCS: 36415; 71046; 80048; 80053; 83605; 83880; 84484; 85025; 87040; 93005; 94640; 96374; 96376; 99285; J2270; Q9967; 94760

== ENCOUNTER 2025-04-06 06:55 | Inpatient (IN) | payer MEDICAID ==
[~2025-04-06] VITALS: Ht 188 cm; Wt 70.2 kg
--- NOTE | 2025-04-06 07:15 | ELECTROCARDIOGRAPH REPORT ---
[facility] Test Date: 2025-04-06 Test Time: 07:13:10 Pat Name: EFRAIN GILMORE Department: PSYCHIATRIC-ER Room: Gender: M Log Chain Feeder: : 1960 Requested By: SABRINA TOURE Order Number: [id number] Reading MD: Measurements Intervals [place] Rate: 112 P: 53 CT: 174 QRS: 49 QRSD: 90 T: 53 QT: 311 QTc: 425 Interpretive Statements Sinus tachycardia Atrial premature complexes Please click the below link to view image of tracing.
[2025-04-06 07:34] LABS: MEAN PLATELET VOLUME 7.5 FL (7.4-10.4); RED CELL DISTRIBUTION WIDTH 13.8 % (11.5-14.5)
--- NOTE | 2025-04-06 07:39 | RADIOLOGY REPORT ---
CHEST RADIOGRAPH Indication: WEAKNESS Technique: Single frontal view of the chest was obtained COMPARISON: CT CT CHEST W/ IV CONTRAST on DOS: 03/03/25, DI CHEST,TWO VIEWS on DOS: 03/03/25, DI CHEST, SINGLE VIEW on DOS: 12/30/24, DI CHEST,TWO VIEWS on DOS: 07/16/24, CT CT CHEST on DOS: 06/11/24 FINDINGS: Lines and Tubes: None Lungs: Interval progression in now complete right hemithoracic opacification. Increased conspicuity o f multiple pulmonary nodules peripherally distributed within the left hemithorax. No pneumothorax. Cardiomediastinal contours: Poorly evaluated secondary to degree of right hemithoracic opacification. Bones: Unremarkable IMPRESSION: 1. Interval progression in now complete right hemithoracic opacification. 2. Increased conspicuity of multiple peripherally distributed left pulmonary nodules.
[2025-04-06] MEDS ORDERED: iohexol 300mg/ml 100ml inj. ONE (07:48)
[2025-04-06 07:56] LABS: CREATININE 1.27 MG/DL (0.60-1.10); TOTAL CARBON DIOXIDE 26.1 MMOL/L (24-32); eCRCL 59 ML/MIN; eGFR 57 ML/MIN
[2025-04-06 08:52] LABS: CREATININE 1.16 MG/DL (0.60-1.10); TOTAL CARBON DIOXIDE 28.1 MMOL/L (24-32); eCRCL 65 ML/MIN; eGFR 64 ML/MIN
[2025-04-06] MEDS: normal saline 1000ML IV soln IVB ONE (09:07)
--- NOTE | 2025-04-06 09:23 | RADIOLOGY REPORT ---
CLINICAL INFORMATION: LUNG CANCER WITH AND WITHOUT IV CONTRAST. Newly diagnosed metastatic lung can cer. TECHNIQUE: Axial imaging was obtained through the brain prior to and after the uneventful administrat ion of 100 mL Omnipaque 300 IV contrast. Coronal and sagittal reformatted images were obtained, revie wed, and stored. Images were reviewed in brain and bone windows. All CT scans at this medical facili ty are performed using dose modulation techniques as appropriate to a performed exam including the fo llowing: Automated exposure control was utilized; adjustment of the MA and/or KV according to patient size; and use of iterative reconstruction technique. CTDIvol = 57.12, 57.41, 0.07, 0.07 mGy DLP = 19 89.49 mGy-cm COMPARISON: CT HEAD on DOS: 12/18/18, CT CERVICAL SPINE on DOS: 12/18/18, CT FACIAL BONES/SOFT TISSUE on DOS: 12/18/18 FINDINGS: There is no acute intracranial hemorrhage. No mass effect or midline shift. Scattered areas of hypoattenuation are seen in the periventricular and subcortical white matter, which are nonspecif ic but most likely sequelae of small vessel ischemic disease. No abnormal parenchymal or meningeal en hancement. The ventricles and sulci are within normal limits in size for age. Basal cisterns are coffman nt. The calvarium is unremarkable. Paranasal sinuses and mastoid air cells are clear. IMPRESSION: 1. No CT evidence of acute intracranial abnormality. 2. No abnormal parenchymal or meningeal enhancement demonstrated on CT. No CT evidence for intracrani al metastatic disease. MRI would be more sensitive for detecting small brain metastases. 3. Nonacute findings as described above.
--- NOTE | 2025-04-06 09:32 | Physician Documentation ---
History of Present Illness ~ Chief Complaint: Weakness Stated Complaint: LETHARGIC Time Seen by MD: 07:25 OK to notify your PCP?: Yes Primary Medical Doctor: Vanessa CRUZ) Source: patient, family Mode of Arrival: POV Exam Limitations: clinical condition HPI Chief Complaint: Confusion Caveat: Confusion Independent Historians: History of Present Illness: Patient is a 64-year-old man with recent diagnosis of lung cancer on March 04 when he was seen here and transferred to . brings him in today because of confusion that began two days ago. The states that he has been having hallucinations and seeing things that are not there. Patient has no complaints. No chest pain, some shortness a breath that has chronic and he is on 2 L of oxygen at home. No abdominal pain. No nausea or vomiting or diarrhea. Review of systems: All systems were reviewed and are negative except for what is indicated in the history of present illness. Past Medical History: Metastatic lung cancer to the spine, COPD Past Surgical History: Social History: Former smoker Medications: Reviewed as documented Nursing Notes Allergies: Reviewed as documented in Nursing Notes Day of Onset: Apr 06, 2025 Medication Reconciliation Allergies: Coded Allergies: No Known Allergies (Unverified , 04/06/25) Scheduled Budesonide (Pulmicort Flexhaler), 2 PUFFS INH Q12H Scheduled PRN Hydrocodone Bit/Acetaminophen (Hydrocodone-Apap 10-325 Tablet), 1 TABLET PO Q8H PRN for severe pain (7-10) albuterol inhaler (Pro-Air Inhaler), 2 PUFFS INH Q4H PRN for shortness of breath Discontinued Medications Benzonatate (Benzonatate), 1 CAP PO TID PRN for cough Discontinued Reason: patient no longer taking Levofloxacin (Levofloxacin), 750 MG PO DAILY Discontinued Reason: completed med therapy Past Medical History Past Medical History: No Pertinent History, COPD Past Surgical History: noncontributory Patient History: FH: congestive heart failure brother FH: malignant neoplasm of bone sister Alcohol Use: Occasionally Drug Use: none Lives with: Spouse Lives In: Home Review of Systems Unable to obtain complete ROS: altered mental status Physical Exam Vital Signs: RN Vital Signs have been reviewed: Yes, Temperature: 98.7, Source: Temporal, Heart Rate: 93, Respiratory Rate: 16, BP: 152/102, Pulse Oximetry: 97, Weight: 70.200 Oxygen Flow Rate: 2 Pulse Oximetry Reflects: adequate oxygenation Physical Exam General Appearance: No distress, chronically ill-appearing HEENT: Normal OP, dry oral mucosa, PERRL, EOMI Neck: supple, normal ROM, trachea midline Pulmonary: No respiratory distress, CTA, BS are almost absent on the right compared to the left. Cardiac: Mildly tachycardic, regular rhythm, no murmur, rub or gallop, GI: nondistended, soft, nontender, normal bowel sounds, no guarding, no rebound Extremities: normal ROM, no swelling, non-tender Skin: intact, dry, warm, no rashes Neuro: AAO to place, speech is clear, no focal motor weakness Psych: normal affect, good eye contact, no apparent hallucination, normal speech Progress Results/Orders Results/Orders Orders - SABRINA TOURE MD Culture Blood (04/06/25 07:06) Urinalysis, Cult If Indicated (04/06/25 07:06) Chest,Single View (04/06/25 07:06) Monitor (04/06/25 07:06) Oxygen (04/06/25 07:06) Saline Lock (04/06/25 07:06) Straight Cath For Urine Sample (04/06/25 07:06) Ct Head (04/06/25 08:17) Need Urine Collection (04/06/25 08:59) Lactic,2hr (04/06/25 09:11) Calcitonin,[place] Synthetic (Miacalcin I (04/06/25 09:28) Page Hospitalist (04/06/25 09:37) Fill Out Med Reconciliation (04/06/25 09:37) Completed Orders - SABRINA TOURE MD Cbc/Diff (04/06/25 07:06) Chest,Single View (04/06/25 07:06) Procalcitonin (04/06/25 07:06) BMP (04/06/25 07:06) Lacticsepsis (04/06/25 07:06) Electrocardiogram (04/06/25 07:06) CMP (04/06/25 07:35) Iohexol 300mg/Ml 100ml Inj. (Omnipaque-3 (04/06/25 07:48) Ct Head (04/06/25 08:17) Normal Saline 1000ml (0.9% Sodium Chlori (04/06/25 09:00) Calcitonin,[place] Synthetic (Miacalcin I (04/06/25 20:00) Medications Received in ER Medications (Trade) Dose Ordered Sig/Mariel Route PRN Reason Start Time Stop Time Status Last Admin Dose Admin (0.9% sodium chloride (NS) 1000ml IV soln) 2,000 ml ONCE ONCE IVB 04/06/25 09:00 04/06/25 09:01 DC 04/06/25 09:07 2,000 ML (Miacalcin injection) 200 units Q12H IM 04/06/25 09:28 04/06/25 09:48 200 UNITS Vital Signs 04/06/25 04/06/25 04/06/25 04/06/25 07:00 07:23 07:30 07:37 Temp 98.7 Pulse 125 109 Resp 24 16 22 B/P (MAP) 111/71 137/93 (108) Pulse Ox 90 95 97 O2 Delivery Nasal Cannula* O2 Flow Rate 2.0 2.0 2 FiO2 28 04/06/25 08:34 Temp 98.7 Pulse 93 Resp 16 B/P (MAP) 152/102 (119) Pulse Ox 97 O2 Flow Rate 2 Laboratory Tests Test 04/06/25 07:18 04/06/25 07:57 White Blood Count 15.3 H Red Blood Count 4.25 L Hemoglobin 13.7 L Hematocrit 38.7 L Mean Corpuscular Volume 91.1 Mean Corpuscular Hemoglobin 32.3 H Mean Corpuscular Hemoglobin Concent 35.5 Red Cell Distribution Width 13.8 Platelet Count 388 Mean Platelet Volume 7.5 Neutrophils (%) (Auto) 88.7 H Lymphocytes (%) (Auto) 5.3 L Monocytes (%) (Auto) 5.6 Eosinophils (%) (Auto) 0.1 Basophils (%) (Auto) 0.3 Neutrophils # (Auto) 13.6 H Lymphocytes # (Auto) 0.8 L Monocytes # (Auto) 0.9 Eosinophils # (Auto) 0.0 Basophils # (Auto) 0.1 CBC Comment Sodium Level 134 L 134 L Potassium Level 3.8 4.0 Chloride Level 98 L 98 L Carbon Dioxide Level 26.1 28.1 Anion Gap 10 8 Blood Urea Nitrogen 17 17 Creatinine 1.27 H 1.16 H Estimated GFR/1.73 m2 57 64 BUN/Creatinine Ratio 13.4 14.7 Glucose Level 138 H 132 H Lactic Acid Level 2.3 H Calcium Level 15.5 *H 14.8 *H Albumin 2.8 L 2.7 L Procalcitonin 0.07 Chemistry Comments Total Bilirubin 0.8 Aspartate Amino Transf (AST/SGOT) 21 Alanine Aminotransferase (ALT/SGPT) 18 Alkaline Phosphatase 100 Total Protein 7.9 Globulin 5.2 H Albumin/Globulin Ratio 0.5 L Microbiology Date/Time Source Procedure Growth Status 04/06/25 07:57 Blood Hand Right Blood Culture - Preliminary NEGATIVE (LESS THAN 24 HOURS) Resulted Medical Decision Making Additional info obtained from: old records Findings Differential diagnosis includes but is not limited to: Metastatic lung cancer to the brain, dehydration, electrolyte abnormalities, sepsis, delirium, pneumonia, urinary tract infection EKG independent interpretation: Performed at 7:13 a.m.. Sinus tachycardia, heart rate 112, normal axis, normal ST segments Chest x-ray, single view, indication: Lung cancer Independent interpretation: White out and opacification of the right lung., normal mediastinum Laboratory data independent interpretation: CBC: Leukocytosis of 15.3, mild anemia with a hemoglobin of 13.7 CMP: Severe hypercalcemia 15.5, repeat calcium 14.8, creatinine 1.16, LFTs are normal. Urinalysis: Emergency department course/medical decision-making: Patient presents with confusion. Patient is awake and alert. Patient is otherwise neurologically intact. Patient has severe hypocalcemia. Treatment and has been started with intravenous fluids, 2 L of normal saline and IV calcitonin. Patient will require admission. Do not see any evidence or need fo r transfer to higher level care. We will consult hospitalist for admission. Test results, treatment plan and all of the above discussed with the patient and family. Consultation/communications: 9:45 a.m.: Case discussed with nurse practitioner kali Miner. She will evaluate the patient for admission. Departure Disposition: ADMITTED INPATIENT Admitted to Inpatient Unit: to hospitalist Admission Level of Care: PCU with Tele Impression: Primary Impression: Hypercalcemia Additional Impression: Encephalopathy acute Condition: Guarded Education Educated: Patient, Family Educated regarding: diagnosis, treatment Signature Scribe Signature: No scribe Attestation: No scribe SABRINA TOURE MD Apr 06, 2025 09:32
[2025-04-06] MEDS: calcitonin,salmon synthetic 200 units/ml inj IM SCH (09:48)
[2025-04-06] MEDS ORDERED: HYDROcodone/acetaminophen 5mg/325mg tablet PO PRN (09:50)
[2025-04-06] MEDS ORDERED: potassium Cl 40MEQ/1/2NS 520ml 520 ML IV PRN (09:50)
[2025-04-06] MEDS ORDERED: mag hydrox/Alum hydrox/simeth 30ml oral suspension PO PRN (09:50)
[2025-04-06] MEDS ORDERED: potassium Cl 20 mEq SR tablet PO PRN ×2 (09:50)
[2025-04-06] MEDS ORDERED: magnesium hydroxide 30ml (MOM) UD suspension PO PRN (09:50)
[2025-04-06] MEDS ORDERED: magnesium sulf-water 4G/100mL 100 ML IV PRN (09:50)
[2025-04-06] MEDS ORDERED: magnesium sulf-water 2g/50mL 50 ML IV PRN (09:50)
[2025-04-06] MEDS: LidoCAINE 2% Topical Jelly 11mL syringe (UROJET) TOP ONE (10:36)
[2025-04-06] MEDS: PAMIDRONATE DISODIUM IV ONE (10:44)
[2025-04-06] MEDS: normal saline 1000ml 1,000 ML IV SCH (10:44)
[2025-04-06] MEDS: normal saline 1000ml 1,000 ML IV STA (10:44)
[2025-04-06] MEDS: NORMAL SALINE IV ONE (10:44)
[2025-04-06 10:46] LABS: PHOSPHORUS 2.6 MG/DL (2.3-4.5)
--- NOTE | 2025-04-06 11:04 | HISTORY AND PHYSICAL ---
History & Physical Providers to CC ~ History of Present Illness Reason for Admit\Complaint: Hypercalcemia of malignancy, DAVE, lung cancer,metabolic encephalopathy History of Present Illness Ashwin Gasca is a 64-year-old male accompanied by his Tati Vegas with a past medical history of known lung cancer who presented to the ED with chief complaint of confusion x 2 days. Patient's spouse states patient had an appointment with oncologist tomorrow which he will not be able to make. Patient denies prior WI/CAD, CVA, cardiac arrhythmia, DVT/PE, or GIB. Patient denies loss of consciousness, chest pain, palpitations, shortness of breath, abdominal pain, n/v/d, fever, chills, dysuria. Initial diagnostic findings are notable for corrected calcium of 16.46mg/dL, DAVE but with wnl phosphorus, hypoxia requiring 2L oxygen via NC. CXR shows interval progression in now complete right hemithoracic opacification, normal mediastinum. Patient is to be admitted for further workups and treatment. Allergies: Coded Allergies: No Known Allergies (Unverified , 04/06/25) Home Medications Home Medications Active Hydrocodone-Apap 10-325 Tablet (Acetaminophen/Hydrocodone Bitart) 10mg/325mg Tablet 1 Tablet PO Q8H PRN Pro-Air Inhaler (Albuterol) 8.5 Gm Inhaler 2 Puffs INH Q4H PRN Pulmicort Flexhaler (Budesonide) 180 Mcg Aer.pow.ba 2 Puffs INH Q12H 30 Days Past Medical History Past Medical History Lung cancer with bone metastasis Past Surgical History Surgical History Comment Denies Family History Family History: FH: congestive heart failure brother FH: malignant neoplasm of bone sister Past Social History Social History Comment Alcohol: Denies Tobacco: Former cigarette smoker of 40 pack year history, quit one year ago Illicit drug use: Denies Living situation: Lives at home with spouse ROS ROS Other than positives in HPI, all 14 review of systems are negative Exam Vitals: Vital Signs Date Time Temp Pulse Resp B/P (MAP) Pulse Ox O2 Delivery O2 Flow Rate FiO2 04/06/25 08:34 98.7 93 16 152/102 (119) 97 2 04/06/25 07:37 Nasal Cannula* 28 General: Normalized weakness, awake and alert but not oriented, NAD HEENT: Normocephalic, PERRLA Neck: Supple, trachea midline, no JVD Chest: Clear to auscultation bilaterally Cardiovascular: RRR, S1&S2 Abdomen: Soft and nontender Extremities: No cyanosis/clubbing/or edema Central Nervous System: No focal deficits Musculoskeletal: No paraspinal muscle tenderness, no muscle spasm Skin: Warm and intact Diagnostic Data Last Recorded Lab Results: 04/06/25 0718 04/06/25 1011 Additional Plan Assessment & Plan Hypercalcemia likely 2/2 malignancy Metabolic encephalopathy Lung cancer with metastasis Prerenal DAVE 2/2 dehydration/vasomotor nephropathy Hypokalemia Sepsis vs SIRS Acute hypoxic respiratory failure 2/2 above -PO4 wnl, Corrected Ca 16.46, EKG sinus at 112bpm with PACs, lactic acid 2.3- 1.9, hypoxia requiring 2L oxygen via NC; CXR shows interval progression in now complete right hemithoracic opacification, normal mediastinum; consulted patient financial specialist Dr. Larsen, follow CT -follow PTH/PTHrP, vit D, iCa -hydration with NS, bisphosphonate, abx, telemetry DVT/VTE prophylaxis: Heparin Code status: Full code I spent a total of 35 minutes discussing Advanced Care Planning measures with the patient's spouse Tati Vegas. Advance care planning: Discussed with patient's spouse the importance of advance care planning in case of emergent situation. We discussed various resuscitative measures/ ACP with the patient at the time of admission. Patient voiced understanding and patient's spouse has decided on a full code status. Date of Service: Apr 06, 2025 Billing Provider: ALFREDA ALBERTO Common Visit Codes: [id number] INP/OBS CARE (HIGH) Secondary Visit Codes: [id number] CARE PLAN 30 MINUTES ALFREDA ALBERTO Apr 06, 2025 11:04
[2025-04-06] MEDS: CefTRIAXone 2gm/D5W 50ml BAG 50 ML IV ONE (11:12)
[2025-04-06 11:21] LABS: LEUKOCYTE ESTERASE ,URINE NEGATIVE (Neg); NITRITES, URINE NEGATIVE (Neg); OCCULT BLOOD,URINE TRACE-INTACT (Neg)
[2025-04-06 11:25] LABS: UA COLLECTION TYPE URINAL
[2025-04-06 11:28] LABS: MUCUS STRANDS NONE SEEN /LPF (Neg); SQUAMOUS EPITHELIAL CELL,UR FEW /LPF (FEW)
[2025-04-06] MEDS ORDERED: hydrALAZINE 20mg/ml inj. IV ONE (11:40)
[2025-04-06] MEDS ORDERED: haloperidol lactate 5mg/ml inj IM PRN (14:10)
[2025-04-06 15:30] VITALS: BP 174/106; PULSE 82; RESP 16; TEMP 97.2; O2SAT 98
[2025-04-06 15:35] VITALS: RESP 16; O2SAT 98
[2025-04-06] MEDS: hydrALAZINE 20mg/ml inj. IV PRN (15:45)
[2025-04-06] MEDS: HYDROcodone/acetaminophen 10/325mg tab PO PRN (15:46)
[2025-04-06 16:00] VITALS: BP 182/102
[2025-04-06 16:07] LABS: CREATININE 1.03 MG/DL (0.60-1.10); TOTAL CARBON DIOXIDE 23.7 MMOL/L (24-32); eCRCL 73 ML/MIN; eGFR 73 ML/MIN
[2025-04-06] MEDS: hydrALAZINE 20mg/ml inj. IV ONE (17:19)
--- NOTE | 2025-04-06 17:19 | RADIOLOGY REPORT ---
Procedure: DI ABDOMEN,SINGLE VIEW([facility] Study Date and Requested Time: 04/06/2025 04:43 PM Technique: Single view of the abdomen and pelvis is available for evaluation. History: dilated bowel loops Comparison: None Findings/ Impression: Nonspecific bowel gas pattern. Moderate amount of fecal material and gas within the colon. No eviden ce of bowel obstruction. No abnormal calcifications are noted. The lung bases outside the field-of-v iew. Pires catheter is noted in place with possible rectal tube. Abnormal configuration of the femoral head and neck regions bilaterally which is most likely position al. Otherwise, no evidence for acute osseous abnormalities.
[2025-04-06 17:30] VITALS: BP 173/104
[2025-04-06] MEDS: azithromycin/NS 500mg/250ml 250 ML IV ONE (17:50)
[2025-04-06 18:00] VITALS: BP 177/106; PULSE 79; RESP 18; TEMP 97.6; O2SAT 97
[2025-04-06] MEDS: ziprasidone IM 20mg inj **IM only IM ONE (18:10)
[2025-04-06] MEDS ORDERED: labetalol 20mg/4ml (5mg/ml) syringe IV PRN (19:10)
[2025-04-06] MEDS: ondansetron/PF 4mg/2ml inj IV PRN (19:25)
[2025-04-06] MEDS: heparin, porcine 5000 units/ml vial SQ SCH (19:28)
[2025-04-06] MEDS: cloNIDine 0.3mg/24 hour patch (7 day patch) TD ONE (19:40)
[2025-04-06] MEDS ORDERED: docusate sod 100mg capsule PO SCH (20:00)
[2025-04-06] MEDS ORDERED: calcitonin,salmon synthetic 200 units/ml inj IM SCH (20:00)
[2025-04-06] MEDS: K and/or MAG REPLACEMENT MC SCH (20:00)
[2025-04-06 22:00] VITALS: BP 155/86; PULSE 105; RESP 19; TEMP 97.1; O2SAT 97
[2025-04-07] VITALS (7 sets, daily range): BP systolic 138–163; BP diastolic 89–100; PULSE 80–96; RESP 16–26; TEMP 96.8–97.9; O2SAT 91–97
[2025-04-07] MEDS: ziprasidone IM 20mg inj **IM only IM ONE (06:52)
[2025-04-07 06:56] LABS: MEAN PLATELET VOLUME 7.8 FL (7.4-10.4); RED CELL DISTRIBUTION WIDTH 13.4 % (11.5-14.5)
[2025-04-07 07:02] LABS: CREATININE 1.06 MG/DL (0.60-1.10); TOTAL CARBON DIOXIDE 24.4 MMOL/L (24-32); eCRCL 71 ML/MIN; eGFR 71 ML/MIN
[2025-04-07] MEDS ORDERED: CefTRIAXone 2gm/D5W 50ml BAG 50 ML IV SCH (08:00)
[2025-04-07] MEDS ORDERED: azithromycin/NS 500mg/250ml 250 ML IV SCH (08:00)
--- NOTE | 2025-04-07 09:15 | RADIOLOGY REPORT ---
Procedure: CT CT CHEST Clinical History: right lung obstruction; tumor, effusion Comparison: DI CHEST,SINGLE VIEW on DOS: 04/06/25, CT CT CHEST W/ IV CONTRAST on DOS: 03/03/25 TECHNIQUE: Multidetector CT of the chest was performed from the lung apices to the upper abdomen with out the use of intravenous contract. Coronal and sagittal multiplanar reformats were performed. RADIATION DOSE: CTDI volume is 16.5 mGy. Dose-length product is 609.3 mGy*cm The dose indicators for CT are the volume Computed Tomography (CT) Dose Index (CTDIvol) and the Dose Length Product (DLP), and are measured in units of mGy and mGy-cm, respectively. These indicators are not patient dose, but values generated from the CT scanner acquisition factors. The report includes radiation exposure data for exposures received during this examination. Radiation optimization: All CT scans at this facility use at least one of these dose optimization lisa hniques: automated exposure control mA and/or kV adjustment per patient size (includes targeted exam s where dose is matched to clinical indication) or iterative reconstruction. FINDINGS: Lower neck: Normal thyroid Lungs: There is interval increase in size of innumerable pulmonary nodules in the left upper and lowe r lobe compatible with progression of metastatic disease. For example, a right lower lobe pulmonary n odule previously measured 4 x 4 mm now measures 1.2 x 1.1 cm. There is a right perihilar mass like co nsolidation measuring about 5.6 x 5.8 cm likely reflecting an endobronchial mass. There is diffuse ri ght upper, middle and lower lobe consolidation similar to prior study. Central airways: The trachea is patent and deviated to the right due to volume loss. There is obstruc tion of the right mainstem bronchus by right perihilar mass. Pleura: No pneumothorax. Small right pleural effusion, likely malignant. Heart/Vascular Structures: Heart is normal in size. There is deviation to the right due to volume los s in the right lung. There are coronary artery calcifications. There is no pericardial effusion. The thoracic aorta is normal in caliber. Lymph Nodes: Right hilar lymphadenopathy which is indistinguishable from right hilar mass. Mediastina l lymphadenopathy again noted similar to prior study with index enlarged right paratracheal lymph nod e measuring 2.7 cm. Musculoskeletal: Interval development of destructive lesion in the posterior right 8th rib. Lytic le sions in the sternum with extraosseous extension of soft tissue mass compatible with metastatic disea se. Soft tissues: Normal. Upper abdomen: Right adrenal nodule increased since prior study previously measuring 2.2 cm now measu ring 3.1 cm consistent with progression of metastatic disease. High density in the gallbladder. IMPRESSION: 1. Progression of metastatic disease with increased size of innumerable pulmonary nodules seen in th e left upper and lower lobe. 2. Right perihilar endobronchial mass and postobstructive consolidation in the right upper and lower lobes with volume loss similar to prior study. 3. Metastatic disease in the right posterior 8th rib and the sternum new since prior study. 4. Right hilar and mediastinal lymphadenopathy probably not significantly changed. 5. RIGHT adrenal metastasis increased in size. 6. Small right pleural effusion likely malignant.
[2025-04-07] MEDS: metroNIDAZOLE-Flagyl 500mg/NS 100 ML IV SCH (10:36)
[2025-04-07] MEDS ORDERED: mineral oil 133ml enema RC PRN (10:45)
--- NOTE | 2025-04-07 11:15 | PROGRESS NOTE ---
Daily Progress Note Providers to CC ~ Antibiotic Timeout Antibiotic Ordered?: No Subjective No acute events overnight. Patient examined at bedside. Patient is obtunded. I discussed findings and prognosis with patient spouse Tati Vegas as patient is not capable of understanding and altered. CT chest progression of metastatic disease, perihilar endobronchial mass and postobstructive consolidation in the right upper and lower lobes, metastatic disease in the right posterior 8th rib and the sternum, right adrenal metastasis, right pleural effusion. I discussed findings and prognosis with patient's spouse Tati Vegas, in the presence of nursing staff, as patient is not capable of verbalizing, understanding and altered. Patient's spouse voiced understanding and has decided on a DNR w/ comfort care status. Objective Vital Signs Date Time Temp Pulse Resp B/P (MAP) Pulse Ox O2 Delivery O2 Flow Rate FiO2 04/07/25 06:00 98 04/07/25 02:46 97.8 19 138/89 (105) 91 Nasal Cannula 2.0 04/06/25 07:37 28 Result Diagram: 04/07/25 0608 04/07/25 0608 Physical Exam General: Obtunded HEENT: Normocephalic, PERRLA Neck: Supple, trachea midline, no JVD Chest: Crackles in right lower lung Cardiovascular: RRR, S1&S2 GI: Soft and nontender Extremities: No cyanosis/clubbing/or edema CHARGE MACHINE OPERATOR: Obtunded Musculoskeletal: No paraspinal muscle tenderness, no muscle spasm Skin: Warm and intact Problem\Assessment\Plan Assessment & Plan Hypercalcemia likely 2/2 malignancy Metabolic encephalopathy Lung cancer with metastasis Prerenal DAVE 2/2 dehydration/vasomotor nephropathy Hypokalemia Sepsis vs SIRS Acute hypoxic respiratory failure 2/2 above -PO4 wnl, Corrected Ca 16.46, EKG sinus at 112bpm with PACs, lactic acid 2.3- 1.9, hypoxia requiring 2L oxygen via NC; CXR shows interval progression in now complete right hemithoracic opacification, normal mediastinum; consulted motorcycle deliverer Dr. Larsen, follow CT -follow PTH/PTHrP, vit D, iCa -hydration with NS, bisphosphonate, abx, telemetry -04/07: CT chest progresion of metastatic disease, perihilar endobronchial mass and postobstructive consolidation in the right upper and lower lobes, metastatic disease in the right posterior 8th rib and the sternum, right adrenal metastasis, right pleural effusion. -I discussed findings and prognosis with patient's spouse Tati Vegas, in the presence of nursing staff, as patient is not capable of verbalizing, understanding and altered. Patient's spouse voiced understanding and has decided on a DNR w/ comfort care status. I spent a total of 35 minutes discussing Advanced Care Planning measures with the patient. Code status: DNR w/ comfort care Date of Service: Apr 07, 2025 Billing Provider: ALFREDA ALBERTO Common Visit Codes: [id number] INP/OBS CARE(HIGH) Secondary Visit Codes: [id number] CARE PLAN 30 MINUTES ALFREDA ALBERTO Apr 07, 2025 11:15
[2025-04-07] MEDS: morphine 10mg/ml inj. IV PRN (22:01)
[2025-04-08 06:26] VITALS: BP 123/72; PULSE 82; RESP 14; TEMP 97.9; O2SAT 92
[2025-04-08 06:55] VITALS: RESP 14; O2SAT 92
[2025-04-08 11:29] VITALS: BP 136/94; PULSE 112; RESP 17; TEMP 97.9; O2SAT 96
[2025-04-08 18:00] VITALS: BP 151/91; PULSE 85; RESP 17; TEMP 98.2; O2SAT 92
[2025-04-08] MEDS: morphine 4 MG/ML inj SYRINge IV PRN (18:42)
--- NOTE | 2025-04-08 18:42 | PROGRESS NOTE ---
Daily Progress Note Providers to CC ~ Antibiotic Timeout Antibiotic Ordered?: No Subjective Patient is seen in his room lethargic unable to respond to verbal commands. As per bilingual patient support caseworkerrfid manager team we will not be able to take him today but likely tomorrow they will take him on hospice Objective Vital Signs Date Time Temp Pulse Resp B/P (MAP) Pulse Ox O2 Delivery O2 Flow Rate FiO2 04/08/25 11:29 97.9 112 17 136/94 (108) 96 Room Air 04/08/25 06:55 2.0 04/07/25 23:43 28 Result Diagram: 04/07/25 0608 04/07/25 06 Qsrwefk-wmd-paksglysa lethargic unable to communicate his needs HEENT-atraumatic normocephalic, neck supple without elevated JVD, Eyes-no icterus or pallor seen in eyes Chest-clear to auscultation bilaterally, breathing nonlabored no tachypnea, no wheezing, no crepitation, no crackles. Heart-S1-S2 normal, regular heart rate no murmur Abdomen bowel sounds positive on auscultation, soft nondistended nontender no guarding, no rigidity Neurology-lethargic unable to cooperate during physical exam Extremity- no pedal edema, not able to move all 4 extremities Problem\Assessment\Plan Assessment & Plan Hypercalcemia likely 2/2 malignancy Metabolic encephalopathy Lung cancer with metastasis Prerenal DAVE 2/2 dehydration/vasomotor nephropathy Hypokalemia Sepsis vs SIRS Acute hypoxic respiratory failure 2/2 above -PO4 wnl, Corrected Ca 16.46, EKG sinus at 112bpm with PACs, lactic acid 2.3- 1.9, hypoxia requiring 2L oxygen via NC; CXR shows interval progression in now complete right hemithoracic opacification, normal mediastinum; consulted tank house operator helper Dr. Larsen, follow CT -follow PTH/PTHrP, vit D, iCa -hydration with NS, bisphosphonate, abx, telemetry -04/07: CT chest progresion of metastatic disease, perihilar endobronchial mass and postobstructive consolidation in the right upper and lower lobes, metastatic disease in the right posterior 8th rib and the sternum, right adrenal metastasis, right pleural effusion. -Isidra discussed findings and prognosis with patient's spouse Tati Vegas, in the presence of nursing staff, as patient is not capable of verbalizing, understanding and altered. Patient's spouse voiced understanding and has decided on a DNR w/ comfort care status. she spent a total of 35 minutes discussing Advanced Care Planning measures with the patient. Code status: DNR w/ comfort care As per bilingual patient support caseworkerrfid manager team we will not be able to take him today but likely tomorrow they will take him on hospice. I will continue to follow patient in a.m. prognosis poor Date of Service: Apr 08, 2025 Billing Provider: ALECIA RANDALL MD Common Visit Codes: [id number] INP/OBS CARE(MOD) ALECIA RANDALL MD Apr 08, 2025 18:42
[2025-04-08 20:00] VITALS: RESP 14; O2SAT 95
[2025-04-08] MEDS ORDERED: morphine ORAL 5MG/0.25 ML (Conc. morphine) oral syringe PO PRN (21:40)
[2025-04-08 22:00] VITALS: BP 121/76; PULSE 86; RESP 14; TEMP 100.5; O2SAT 95
[2025-04-08] MEDS: morphine 10mg/0.5ml (conc. morphine) oral syringe PO PRN (22:38)
[2025-04-09] MEDS: haloperidol lactate 5mg/ml inj IM PRN (04:47)
[2025-04-09 06:50] VITALS: BP 146/89; PULSE 75; RESP 16; TEMP 98.8; O2SAT 93
[2025-04-09 07:00] VITALS: BP 146/89; PULSE 75; RESP 16; TEMP 98.8; O2SAT 93
--- NOTE | 2025-04-09 18:52 | DISCHARGE SUMMARY ---
Discharge Summary Providers to CC ~ Discharge Summary Admission Diagnosis: Hypercalcemia of malignancy, metabolic encephalopathy Hospital Course DATE OF ADMISSION: 04/06/2025 DATE OF DISCHARGE: 04/09/2025 Discharge Diagnosis\\Comment: Per calcemia likely secondary to malignancy, metabolic encephalopathy, lung cancer with metastasis, DAVE likely secondary to dehydration/possible vasomotor nephropathy, hypokalemia, sirs versus sepsis, acute hypoxic respiratory failure Operations\\Procedures: None Consultants: None Complications: None Condition on DC: Stable Continued Medications: albuterol inhaler (Pro-Air Inhaler) 8.5 Gm Inhaler 2 PUFFS INH Q4H PRN for shortness of breath, #1 INH 1 Refill Budesonide (Pulmicort Flexhaler) 180 Mcg Aer.pow.ba 2 PUFFS INH Q12H for 30 Days, #1 EA 0 Refills Hydrocodone Bit/Acetaminophen (Hydrocodone-Apap 10-325 Tablet) 10mg/325mg Tablet 1 TABLET PO Q8H PRN for severe pain (7-10), #14 TAB Discharge Summary: The patient was admitted by Sukhdev YAÑEZ with the following HPI:"Ashwin Gasca is a 64-year-old male accompanied by his [place] with a past medical history of known lung cancer who presented to the ED with chief complaint of confusion x 2 days. Patient's spouse states patient had an appointment with oncologist tomorrow which he will not be able to make. Patient denies prior CA/CAD, CVA, cardiac arrhythmia, DVT/PE, or GIB. Patient denies loss of consciousness, chest pain, palpitations, shortness of breath, abdominal pain, n/v/d, fever, chills, dysuria. Initial diagnostic findings are notable for corrected calcium of 16.46mg/dL, DAVE but with wnl phosphorus, hypoxia requiring 2L oxygen via NC. CXR shows interval progression in now complete right hemithoracic opacification, normal mediastinum. Patient is to be admitted for further workups and treatment." Initially the patient was obtunded- the patient did have an DAVE possibly secondary to dehydration/vasomotor nephropathy in a function did improve with IV fluid resuscitation initially the patient was treated with IV Rocephin however antibiotics were discontinued as the patient was transitioned to comfort care The patient initially has a serum calcium of 15.5 the patient was given IV pamidronate and the patient is serum calcium level improved from 15.5-11.2 and the patient's mentation improved as well and remained on 2 L oxygen during hospitalization. Gen. No acute distress alert and oriented Lungs clear to ascultation bilaterally, no wheezes rales or rhonchi appreciated Heart normal sinus rhythm no murmurs rubs or clicks noted Abdomen soft nontender bowel sounds are normoactive Lower extremities no clubbing cyanosis, nor edema appreciated bilaterally The patient felt ready to be discharged and was medically cleared to be discharged home on hospice care on 04/09/2025 The patient was seen and evaluated on day of discharge. Time spent on discharge 20 minutes *Problems/Diagnosis: (1) Encephalopathy acute Status: Acute Total Time Spent on D/C: > 30 Minutes Date of Service: Apr 09, 2025 Billing Provider: JOSE HOU DO Common Visit Codes: 27189-TVT/OBS DISCH DAY <30MIN JOSE HOU DO Apr 09, 2025 18:52
== END 2025-04-09 09:28 | disposition hospice, home (50) | DRG 720 ==
LOC: ER 06:56 → ED HOLD 09:56 → PCU 3S 15:15 → SUR 3N 04-07 21:25
PROVIDERS: ADMIT Nurse Practitioner Family; ATTEND Nurse Practitioner Family
PROC: BW281ZZ Computerized Tomography (CT Scan) of Head using Low Osmolar Contrast (ICD-10-PCS; principal; 2025-04-06)
DX: A41.9 Sepsis, unspecified organism (principal); N17.0 Acute kidney failure with tubular necrosis; J96.01 Acute respiratory failure with hypoxia; G93.41 Metabolic encephalopathy; C79.51 Secondary malignant neoplasm of bone; C79.71 Secondary malignant neoplasm of right adrenal gland; E86.0 Dehydration; C34.90 Malignant neoplasm of unspecified part of unspecified bronchus or lung; Z66 Do not resuscitate; E87.6 Hypokalemia; I50.9 Heart failure, unspecified; J44.9 Chronic obstructive pulmonary disease, unspecified; E83.52 Hypercalcemia; Z85.118 Personal history of other malignant neoplasm of bronchus and lung; Z87.891 Personal history of nicotine dependence; Z51.5 Encounter for palliative care
CPT/HCPCS: 36415; 70470; 71045; 71250; 74018; 80048; 80053; 81001; 82306; 82330; 83605; 83735; 83970; 84100; 84132; 84145; 85025; 87040; 87081; 93005; 96365; 96372; 96375; 96376; 99285; A4314; A4349; A4615; A5200; A6258; A6590; C1758; G0378; J0360; J0456; J0630; J0696; J1630; J1644; J2060; J2270; J2274; J2405; J2430; J3486; J3490; J7030; J7040; Q9967